=== PATIENT | male | born 1960 | race Caucasian/White ===

== ENCOUNTER 2017-10-27 19:24 | Inpatient (IN) | payer BC ==
[~2017-10-27] VITALS: Ht 182.9 cm; Wt 126.7 kg
[2017-10-27] MEDS ORDERED: ACT15 PO (20:37)
[2017-10-27] MEDS ORDERED: GLIPIZIDE ER2.5 M1 PO (20:38)
[2017-10-27 21:11] LABS: BASOPHIL % 0.3 % (0-2); PLATELET COUNT 332 x10^3mcL (130-400); RED CELL DISTRIBUTION WIDTH 13.5 % (11.5-14.5)
[2017-10-27 21:19] LABS: ALKALINE PHOSPHATASE 78 U/L (46-116); ALT/SGPT 31 U/L (16-63); AST/SGOT 18 U/L (15-37); BILIRUBIN TOTAL 0.3 mg/dL (0.20-1.00); CALCIUM 8.6 mg/dL (8.5-10.1); CARBON DIOXIDE 25.2 mmol/L (21-32); CHLORIDE SERUM 99 mmol/L (98-107); CREATININE SERUM 1.4 mg/dL (0.7-1.3); GFR1 56 mL/min; GLUCOSE SERUM 210 mg/dL (74-106); POTASSIUM SERUM 3.8 mmol/L (3.5-5.1); TOTAL PROTEIN, SERUM 7.9 g/dL (6.4-8.2)
[2017-10-27 21:29] LABS: ALBUMIN 3.3 g/dL (3.4-5.0); CK-MB 0.5 ng/mL (0-3.6); SODIUM SERUM 135 mmol/L (136-145)
[2017-10-27 22:43] LABS: UA SPECIFIC GRAVITY 1.025 (1.005-1.035); microscopic required? YES; urine erythrocyte NEGATIVE (NEGATIVE)
[2017-10-27 23:03] LABS: AMPHETAMINE QUAL UR POSITIVE (NEG <=1000)
[2017-10-27 23:03] LABS: MAGNESIUM 1.8 mg/dL (1.8-2.4); PHOSPHOROUS 2.1 mg/dL (2.5-4.9)
[2017-10-27 23:12] LABS: FREE T4 0.99 ng/dL (0.76-1.46); FREE THYROXINE INDEX 2.2 ug/dL (1.4-4.5); T4(THYROXINE) 6.7 ug/dL (4.7-13.3)
[2017-10-28 00:28] LABS: T3 TOTAL 0.77 ng/mL
[2017-10-28 00:37] VITALS: BP 138/68
[2017-10-28 05:38] VITALS: BP 123/55
[2017-10-28 06:09] LABS: BASOPHIL % 0.6 % (0-2); PLATELET COUNT 303 x10^3mcL (130-400); RED CELL DISTRIBUTION WIDTH 13.4 % (11.5-14.5)
[2017-10-28 06:25] LABS: CALCIUM 7.6 mg/dL (8.5-10.1); CHLORIDE SERUM 108 mmol/L (98-107); CREATININE SERUM 1.2 mg/dL (0.7-1.3); GFR1 > 60 mL/min; GLUCOSE SERUM 174 mg/dL (74-106); MAGNESIUM 1.4 mg/dL (1.8-2.4); PHOSPHOROUS 2.9 mg/dL (2.5-4.9); POTASSIUM SERUM 3.8 mmol/L (3.5-5.1); SODIUM SERUM 142 mmol/L (136-145)
[2017-10-28 09:30] VITALS: BP 123/54
[2017-10-28 12:47] VITALS: BP 119/62
[2017-10-28 17:30] VITALS: BP 148/77
[2017-10-28 21:47] VITALS: BP 135/74
[2017-10-29 05:43] VITALS: BP 142/75
[2017-10-29 06:12] LABS: PLATELET COUNT 268 x10^3mcL (130-400); RED CELL DISTRIBUTION WIDTH 13.8 % (11.5-14.5)
[2017-10-29 06:31] LABS: CALCIUM 8.1 mg/dL (8.5-10.1); CREATININE SERUM 1.4 mg/dL (0.7-1.3); POTASSIUM SERUM 3.8 mmol/L (3.5-5.1)
[2017-10-29 06:40] LABS: BASOPHIL % 0 % (0-2)
[2017-10-29 09:55] VITALS: BP 132/69
[2017-10-29 13:43] VITALS: BP 132/76
[2017-10-29 17:15] VITALS: BP 174/91
[2017-10-29 21:14] VITALS: BP 128/84
[2017-10-30 06:05] LABS: BASOPHIL % 0.3 % (0-2); PLATELET COUNT 269 x10^3mcL (130-400); RED CELL DISTRIBUTION WIDTH 14.1 % (11.5-14.5)
[2017-10-30 06:25] VITALS: BP 141/76
[2017-10-30 06:43] LABS: CARBON DIOXIDE 26.5 mmol/L (21-32); CHLORIDE SERUM 104 mmol/L (98-107); CREATININE SERUM 1.3 mg/dL (0.7-1.3); GFR1 > 60 mL/min; GLUCOSE SERUM 121 mg/dL (74-106); POTASSIUM SERUM 3.6 mmol/L (3.5-5.1); SODIUM SERUM 141 mmol/L (136-145)
[2017-10-30 08:33] VITALS: BP 140/73
[2017-10-30 10:58] VITALS: Ht 182.9 cm; Wt 126.7 kg
[2017-10-30 12:16] LABS: MAGNESIUM 1.9 mg/dL (1.8-2.4); PHOSPHOROUS 3.7 mg/dL (2.5-4.9)
[2017-10-30 13:23] VITALS: BP 137/76
[2017-10-30 16:15] VITALS: BP 142/77
[2017-10-30 20:48] VITALS: BP 140/75
[2017-10-31 04:50] VITALS: BP 149/75
[2017-10-31 07:30] LABS: BASOPHIL % 0.6 % (0-2); PLATELET COUNT 280 x10^3mcL (130-400); RED CELL DISTRIBUTION WIDTH 13.9 % (11.5-14.5)
[2017-10-31 07:55] LABS: CARBON DIOXIDE 28.4 mmol/L (21-32); CHLORIDE SERUM 102 mmol/L (98-107); CREATININE SERUM 1.2 mg/dL (0.7-1.3); GFR1 > 60 mL/min; GLUCOSE SERUM 167 mg/dL (74-106); PHOSPHOROUS 3.6 mg/dL (2.5-4.9); POTASSIUM SERUM 3.6 mmol/L (3.5-5.1); SODIUM SERUM 136 mmol/L (136-145)
[2017-10-31 09:32] VITALS: BP 142/82
[2017-10-31 13:06] VITALS: BP 131/76
== END 2017-10-31 17:35 | disposition left against medical advice (07) | DRG 871 ==
LOC: ED 19:24 → DU 22:10
PROVIDERS: Emergency Medicine; Family Medicine Sports Medicine
DX: A41.9 Sepsis, unspecified organism (principal); J69.0 Pneumonitis due to inhalation of food and vomit; N17.0 Acute kidney failure with tubular necrosis; E44.1 Mild protein-calorie malnutrition; I16.0 Hypertensive urgency; R65.20 Severe sepsis without septic shock; E11.65 Type 2 diabetes mellitus with hyperglycemia; F15.10 Other stimulant abuse, uncomplicated; E66.9 Obesity, unspecified; Z68.37 Body mass index [BMI] 37.0-37.9, adult; Z79.84 Long term (current) use of oral hypoglycemic drugs
CPT/HCPCS: 36600; 83880; 84439; 87804; 94150; 97110-GP; 97116-GP; 97530-GP; G0480; J0456; J0696; J1644; J1885; J1940; J1956; J2543; J3475; J7030; J7040; J7620; Q0092